=== PATIENT | male | born 1935 | race Caucasian/White ===

== ENCOUNTER 2016-08-18 06:56 | Emergency (ER) | payer MEDICARE, BC ==
[2016-08-18 07:11] VITALS: TEMP 97.6
[2016-08-18 07:40] LABS: BASOPHILS % (AUTO) 1 % (0-3); EOSINOPHILS % (AUTO) 6 % (0-9); HEMATOCRIT 42 % (39-53); MONOCYTES % (AUTO) 8.9 % (0-12); NEUTROPHILS % (AUTO) 56.9 % (37-80)
[2016-08-18] MEDS ORDERED: SODIUM CHLORIDE 0.9% FLUSH 10 ML SOL IV PRN (07:56)
[2016-08-18 07:57] LABS: ALBUMIN 3.5 gm/dl (3.4-5.0); CALCIUM 8.8 mg/dl (8.5-10.1)
[2016-08-18] MEDS ORDERED: SODIUM CHLORIDE 0.9% 1000ML 1,000 ML IV SCH (08:00)
[2016-08-18 08:01] LABS: APPEARANCE,URINE Clear; BILIRUBIN,URINE NEGATIVE (NEGATIVE); COLOR,URINE Yellow; GLUCOSE, URINE (UA) NEGATIVE (NEGATIVE); KETONES,URINE NEGATIVE (NEGATIVE); LEUKOCYTE ESTERASE ,URINE NEGATIVE (NEGATIVE); NITRATE,URINE NEGATIVE (NEGATIVE); OCCULT BLOOD,URINE NEGATIVE (NEG-TRACE); PH,URINE 5.5; UROBILINOGEN,URINE 0.2 (0.2-1.0 EU)
[2016-08-18 08:12] LABS: RBC,URINE NEG (0-3AV/HPF); WBC,URINE 0-1 (0-5AV/HPF)
[2016-08-18 09:02] VITALS: PULSE 64
[2016-08-18 09:22] VITALS: BP 133/69; RESP 12; O2SAT 94
== END 2016-08-18 09:45 | disposition home or self-care (01) | DRG 948 ==
LOC: ED 06:56
DX: R53.1 Weakness (principal)
CPT/HCPCS: 36415; 80053; 81001; 85025; 96365; 99283; 99285

== ENCOUNTER 2016-10-18 06:03 | Emergency (ER) | payer MEDICARE, BC ==
[2016-10-18 06:13] VITALS: TEMP 98.4
[2016-10-18] MEDS ORDERED: NITROGLYCERIN 0.4 MG TAB SL PRN (06:23)
[2016-10-18] MEDS ORDERED: SODIUM CHLORIDE 0.9% FLUSH 10 ML SOL IV PRN (06:23)
[2016-10-18 06:41] LABS: BASOPHILS % (AUTO) 1 % (0-3); EOSINOPHILS % (AUTO) 3 % (0-9); HEMATOCRIT 41 % (39-53); MEAN CORPUSCULAR HGB CONC 36.6 gm/dl (32.0-36.0); MEAN CORPUSCULAR VOLUME 87 fL (80-100); MONOCYTES % (AUTO) 7.1 % (0-12); NEUTROPHILS % (AUTO) 79.6 % (37-80)
[2016-10-18 06:55] LABS: CALCIUM 8.7 mg/dl (8.5-10.1)
[2016-10-18] MEDS ORDERED: ALUMINUM/MAGNESIUM 30 ML SUS PO ONE (07:12)
[2016-10-18] MEDS ORDERED: LIDOCAINE HCL 2% (VISCOUS) 20 ML SOL MT ONE (07:12)
[2016-10-18] MEDS ORDERED: LIDOCAINE HCL 2% (VISCOUS) 20 ML SOL ONE (07:15)
[2016-10-18] MEDS ORDERED: ALUMINUM/MAGNESIUM 30 ML SUS ONE (07:15)
[2016-10-18 07:22] VITALS: BP 124/64; PULSE 84; RESP 22; O2SAT 92
== END 2016-10-18 07:40 | disposition home or self-care (01) | DRG 392 ==
LOC: ED 06:03
DX: K21.0 Gastro-esophageal reflux disease with esophagitis (principal); R07.9 Chest pain, unspecified
CPT/HCPCS: 36415; 71010; 80048; 82550; 84484; 85025; 85610; 85730; 93005; 99284

== ENCOUNTER 2016-11-25 15:19 | Emergency (ER) | payer OTHER, MEDICARE, BC ==
[2016-11-25 15:29] VITALS: RESP 20
[2016-11-25 15:35] VITALS: TEMP 96.8
[2016-11-25 15:46] VITALS: O2SAT 96
[2016-11-25 15:57] VITALS: PULSE 85
[2016-11-25 16:03] VITALS: BP 160/95
== END 2016-11-25 16:19 | disposition home or self-care (01) | DRG 923 ==
LOC: ED 15:19
DX: Z04.1 Encounter for examination and observation following transport accident (principal); R03.0 Elevated blood-pressure reading, without diagnosis of hypertension; V44.5XXA Car driver injured in collision with heavy transport vehicle or bus in traffic accident, initial encounter
CPT/HCPCS: 99282; 99283

== ENCOUNTER 2017-07-11 16:15 | Inpatient (IN) | payer MEDICARE, BC ==
[2017-07-11] MEDS ORDERED: HEPARIN SODIUM 5000 U/ML SOL IV ONE (16:29)
[2017-07-11] MEDS ORDERED: DILTIAZEM 5 MG/ML SOL IV ONE ×2 (16:31→16:57)
[2017-07-11] MEDS ORDERED: SODIUM CHLORIDE 0.9% 100 ML 100 ML IV ONE (16:57)
[2017-07-11] MEDS ORDERED: HEPARIN PREMIX 25,000 U/250 ML SOL IV PRN ×2 (17:00)
[2017-07-11] MEDS: SODIUM CHLORIDE 0.9% FLUSH 10 ML SOL IV SCH (17:10)
[2017-07-11] MEDS: DILTIAZEM 5 MG/ML 125 MG in SODIUM CHLORIDE 0.9% 100 ML 100 ML IV SCH (17:10)
[2017-07-11] MEDS ORDERED: TEMAZEPAM 15MG 15 MG CAP PO PRN (18:04)
[2017-07-11] MEDS ORDERED: ACETAMINOPHEN 325 MG PO PRN (18:04)
[2017-07-11] MEDS: FUROSEMIDE 20 MG TAB PO SCH (18:27)
[2017-07-11] MEDS: SODIUM CHLORIDE 0.9% 1000ML 1,000 ML IV SCH (18:27)
[2017-07-12] MEDS: SODIUM CHLORIDE 0.9% FLUSH 10 ML SOL IV SCH ×4 (02:49→18:22)
[2017-07-12] MEDS ORDERED: DILTIAZEM 5 MG/ML SOL IV ONE (05:56)
[2017-07-12] MEDS ORDERED: SODIUM CHLORIDE 0.9% 100 ML 100 ML IV ONE (05:56)
[2017-07-12] MEDS: DILTIAZEM 5 MG/ML 125 MG in SODIUM CHLORIDE 0.9% 100 ML 100 ML IV SCH (06:06)
[2017-07-12 08:12] LABS: ALBUMIN 3.1 gm/dl (3.4-5.0); CALCIUM 8.6 mg/dl (8.5-10.1); POTASSIUM 3.7 mMol/L (3.5-5.1)
[2017-07-12 08:25] LABS: BASOPHILS % (AUTO) 1 % (0-3); EOSINOPHILS % (AUTO) 4 % (0-9); HEMATOCRIT 41 % (39-53); MEAN CORPUSCULAR HGB CONC 36.5 gm/dl (32.0-36.0); MEAN CORPUSCULAR VOLUME 91 fL (80-100); NEUTROPHILS % (AUTO) 70.4 % (37-80)
[2017-07-12] MEDS: SODIUM CHLORIDE 0.9% 1000ML 1,000 ML IV SCH (09:06)
[2017-07-12] MEDS: FUROSEMIDE 20 MG TAB PO SCH ×2 (09:10→12:28)
[2017-07-12] MEDS ORDERED: DILTIAZEM 30 MG PO SCH (10:00)
[2017-07-12] MEDS: ROPINIROLE 1 MG PO SCH (10:05)
[2017-07-12] MEDS ORDERED: AMIODARONE 50 MG/ML 600 MG in DEXTROSE 250 ML 250 ML IV ONE (11:25)
[2017-07-12] MEDS ORDERED: AMIODARONE 50 MG/ML SOL IV ONE (12:00)
[2017-07-12] MEDS ORDERED: ENOXAPARIN 30 MG SOL SC SCH (12:00)
[2017-07-12] MEDS ORDERED: ENOXAPARIN 100 MG SOL SC SCH (12:00)
[2017-07-12] MEDS ORDERED: AMIODARONE IV ONE ×2 (12:15→17:15)
[2017-07-12] MEDS ORDERED: DEXTROSE IV ONE ×2 (12:15→17:15)
[2017-07-12] MEDS: RIVAROXABAN 10 MG TAB PO SCH (12:33)
[2017-07-12] MEDS ORDERED: AMIODARONE 50 MG/ML SOL ONE ×3 (12:41→20:35)
[2017-07-12] MEDS ORDERED: DEXTROSE 50 ML 50 ML IV ONE ×3 (12:41→20:37)
[2017-07-12] MEDS ORDERED: KETOTIFEN FUMARATE EACHEYE PRN (13:40)
[2017-07-12] MEDS: DEXTROSE IV SCH ×2 (17:30→20:49)
[2017-07-12] MEDS: AMIODARONE IV SCH ×2 (17:30→20:49)
[2017-07-12] MEDS ORDERED: WARFARIN SODIUM 5 MG TAB PO SCH (18:00)
[2017-07-12] MEDS: TEMAZEPAM 15MG 15 MG CAP PO PRN (20:34)
[2017-07-13] MEDS ORDERED: AMIODARONE 50 MG/ML SOL ONE ×2 (00:43→04:59)
[2017-07-13] MEDS ORDERED: DEXTROSE IV ONE ×2 (00:43→04:59)
[2017-07-13] MEDS: DEXTROSE IV SCH ×2 (00:52→05:05)
[2017-07-13] MEDS: AMIODARONE IV SCH ×2 (00:52→05:05)
[2017-07-13] MEDS: SODIUM CHLORIDE 0.9% FLUSH 10 ML SOL IV SCH ×4 (01:43→20:09)
[2017-07-13 07:35] LABS: CALCIUM 8.6 mg/dl (8.5-10.1); POTASSIUM 3.6 mMol/L (3.5-5.1)
[2017-07-13] MEDS ORDERED: METOPROLOL SUCCINATE 50 MG ER TAB PO PRN (09:00)
[2017-07-13] MEDS: AMIODARONE 200 MG TAB PO SCH ×2 (09:26→20:09)
[2017-07-13] MEDS: FUROSEMIDE 20 MG TAB PO SCH ×2 (09:26→13:54)
[2017-07-13] MEDS: ROPINIROLE 1 MG PO SCH (09:26)
[2017-07-13] MEDS: RIVAROXABAN 10 MG TAB PO SCH (09:27)
[2017-07-13 14:50] VITALS: RESP 20
[2017-07-14] MEDS: SODIUM CHLORIDE 0.9% FLUSH 10 ML SOL IV SCH ×2 (00:48→08:20)
[2017-07-14] MEDS: TEMAZEPAM 15MG 15 MG CAP PO PRN (00:50)
[2017-07-14 07:28] LABS: CALCIUM 8.1 mg/dl (8.5-10.1); POTASSIUM 3.4 mMol/L (3.5-5.1)
[2017-07-14] MEDS: ROPINIROLE 1 MG PO SCH (08:20)
[2017-07-14] MEDS: AMIODARONE 200 MG TAB PO SCH (08:20)
[2017-07-14] MEDS: FUROSEMIDE 20 MG TAB PO SCH (08:21)
[2017-07-14] MEDS: RIVAROXABAN 10 MG TAB PO SCH (09:22)
[2017-07-14 10:53] VITALS: BP 106/64; PULSE 62; TEMP 97.3; O2SAT 95
== END 2017-07-14 10:00 | disposition swing bed (61) | DRG 309 ==
LOC: ACUTE CARE 16:15
PROVIDERS: ADMIT Emergency Medicine; ATTEND Emergency Medicine
DX: I48.91 Unspecified atrial fibrillation (principal); E87.1 Hypo-osmolality and hyponatremia; I34.0 Nonrheumatic mitral (valve) insufficiency; I10 Essential (primary) hypertension; R94.5 Abnormal results of liver function studies; R63.4 Abnormal weight loss; G25.81 Restless legs syndrome; G47.00 Insomnia, unspecified; E66.9 Obesity, unspecified; Z72.89 Other problems related to lifestyle
CPT/HCPCS: 36415; 71010; 80048; 80053; 83880; 84443; 84484; 85025; 85610; 85730; 93012; 93306; 94669; 94762; 99070; J0282; J1644

== ENCOUNTER 2017-07-14 09:35 | Inpatient (IN) | payer MEDICARE, BC ==
[2017-07-14] MEDS ORDERED: METOPROLOL SUCCINATE 50 MG ER TAB PO PRN (10:10)
[2017-07-14] MEDS ORDERED: ACETAMINOPHEN 325 MG PO PRN (10:10)
[2017-07-14] MEDS ORDERED: KETOTIFEN FUMARATE EACHEYE PRN (10:10)
[2017-07-14] MEDS: FUROSEMIDE 20 MG TAB PO SCH (12:01)
[2017-07-14] MEDS ORDERED: PATIENT EDUCATION 1 MISC PRN (14:09)
[2017-07-14] MEDS: POTASSIUM CHLORIDE 10 MEQ CAPSULE PO SCH (20:17)
[2017-07-14] MEDS: AMIODARONE 200 MG TAB PO SCH (20:17)
[2017-07-15] MEDS: TEMAZEPAM 15MG 15 MG CAP PO PRN ×2 (01:41→23:35)
[2017-07-15] MEDS: AMIODARONE 200 MG TAB PO SCH ×2 (09:30→20:53)
[2017-07-15] MEDS: FUROSEMIDE 20 MG TAB PO SCH ×2 (09:30→12:06)
[2017-07-15] MEDS: POTASSIUM CHLORIDE 10 MEQ CAPSULE PO SCH ×2 (09:30→20:54)
[2017-07-15] MEDS: ROPINIROLE HYDROCHLORIDE 2 MG PO SCH (09:31)
[2017-07-15] MEDS: RIVAROXABAN 10 MG TAB PO SCH (09:32)
[2017-07-15] MEDS: CLOTRIMAZOLE 1% CREAM TOP SCH (20:56)
[2017-07-16] MEDS: ROPINIROLE HYDROCHLORIDE 2 MG PO SCH (08:22)
[2017-07-16] MEDS: POTASSIUM CHLORIDE 10 MEQ CAPSULE PO SCH ×2 (08:23→20:18)
[2017-07-16] MEDS: CLOTRIMAZOLE 1% CREAM TOP SCH ×2 (08:23→20:18)
[2017-07-16] MEDS: AMIODARONE 200 MG TAB PO SCH ×2 (08:24→20:17)
[2017-07-16] MEDS: RIVAROXABAN 10 MG TAB PO SCH (08:24)
[2017-07-16] MEDS: FUROSEMIDE 20 MG TAB PO SCH ×2 (08:25→12:05)
[2017-07-16] MEDS: TEMAZEPAM 15MG 15 MG CAP PO PRN (22:35)
[2017-07-17] MEDS: AMIODARONE 200 MG TAB PO SCH ×2 (08:50→22:55)
[2017-07-17] MEDS: POTASSIUM CHLORIDE 10 MEQ CAPSULE PO SCH ×2 (08:50→22:56)
[2017-07-17] MEDS: RIVAROXABAN 10 MG TAB PO SCH (08:51)
[2017-07-17] MEDS: FUROSEMIDE 20 MG TAB PO SCH ×2 (08:51→12:55)
[2017-07-17] MEDS: CLOTRIMAZOLE 1% CREAM TOP SCH ×2 (08:51→22:56)
[2017-07-17] MEDS: ROPINIROLE HYDROCHLORIDE 2 MG PO SCH (08:52)
[2017-07-17] MEDS: TEMAZEPAM 15MG 15 MG CAP PO PRN (22:57)
[2017-07-18] MEDS: AMIODARONE 200 MG TAB PO SCH ×2 (08:37→20:46)
[2017-07-18] MEDS: ROPINIROLE HYDROCHLORIDE 2 MG PO SCH (08:37)
[2017-07-18] MEDS: FUROSEMIDE 20 MG TAB PO SCH ×2 (08:37→11:53)
[2017-07-18] MEDS: POTASSIUM CHLORIDE 10 MEQ CAPSULE PO SCH ×2 (08:37→20:46)
[2017-07-18] MEDS ORDERED: RIVAROXABAN 10 MG TAB PO ONE (08:39)
[2017-07-18] MEDS: RIVAROXABAN 10 MG TAB PO SCH (08:39)
[2017-07-18] MEDS: CLOTRIMAZOLE 1% CREAM TOP SCH ×2 (11:54→20:46)
[2017-07-18] MEDS: TEMAZEPAM 15MG 15 MG CAP PO PRN (23:20)
[2017-07-19] MEDS: ROPINIROLE HYDROCHLORIDE 2 MG PO SCH (08:26)
[2017-07-19] MEDS: AMIODARONE 200 MG TAB PO SCH ×2 (08:26→21:23)
[2017-07-19] MEDS: FUROSEMIDE 20 MG TAB PO SCH ×2 (08:26→12:21)
[2017-07-19] MEDS: POTASSIUM CHLORIDE 10 MEQ CAPSULE PO SCH ×2 (08:26→21:23)
[2017-07-19] MEDS: RIVAROXABAN 10 MG TAB PO SCH (08:26)
[2017-07-19] MEDS: CLOTRIMAZOLE 1% CREAM TOP SCH ×2 (08:27→21:24)
[2017-07-19] MEDS: TRAZODONE HYDROCHLORIDE 50 MG TAB PO PRN (22:04)
[2017-07-19] MEDS: TEMAZEPAM 15MG 15 MG CAP PO PRN (23:26)
[2017-07-20] MEDS: FUROSEMIDE 20 MG TAB PO SCH ×2 (09:08→11:50)
[2017-07-20] MEDS: ROPINIROLE HYDROCHLORIDE 2 MG PO SCH (09:09)
[2017-07-20] MEDS: POTASSIUM CHLORIDE 10 MEQ CAPSULE PO SCH ×2 (09:09→20:20)
[2017-07-20] MEDS: RIVAROXABAN 10 MG TAB PO SCH (09:10)
[2017-07-20] MEDS: CLOTRIMAZOLE 1% CREAM TOP SCH ×2 (09:10→20:20)
[2017-07-20 09:23] LABS: CALCIUM 8.7 mg/dl (8.5-10.1)
[2017-07-20] MEDS: AMIODARONE 200 MG TAB PO SCH ×2 (09:32→20:21)
[2017-07-20] MEDS: TRAZODONE HYDROCHLORIDE 50 MG TAB PO PRN (21:56)
[2017-07-20] MEDS: TEMAZEPAM 15MG 15 MG CAP PO PRN (22:59)
[2017-07-21] MEDS: POTASSIUM CHLORIDE 10 MEQ CAPSULE PO SCH ×2 (09:02→21:19)
[2017-07-21] MEDS: ROPINIROLE HYDROCHLORIDE 2 MG PO SCH (09:02)
[2017-07-21] MEDS: FUROSEMIDE 20 MG TAB PO SCH ×2 (09:02→11:21)
[2017-07-21] MEDS: CLOTRIMAZOLE 1% CREAM TOP SCH ×2 (09:03→21:19)
[2017-07-21] MEDS: AMIODARONE 200 MG TAB PO SCH ×2 (09:03→21:19)
[2017-07-21] MEDS: RIVAROXABAN 10 MG TAB PO SCH (09:03)
[2017-07-21] MEDS: TRAZODONE HYDROCHLORIDE 50 MG TAB PO PRN (21:20)
[2017-07-21] MEDS: TEMAZEPAM 15MG 15 MG CAP PO PRN (22:33)
[2017-07-22 05:04] VITALS: RESP 16
[2017-07-22 07:41] VITALS: BP 118/62; PULSE 53; TEMP 97.3; O2SAT 98
[2017-07-22] MEDS: ROPINIROLE HYDROCHLORIDE 2 MG PO SCH (09:00)
[2017-07-22] MEDS: RIVAROXABAN 10 MG TAB PO SCH (09:01)
[2017-07-22] MEDS: POTASSIUM CHLORIDE 10 MEQ CAPSULE PO SCH (09:01)
[2017-07-22] MEDS: CLOTRIMAZOLE 1% CREAM TOP SCH (09:02)
[2017-07-22] MEDS: FUROSEMIDE 20 MG TAB PO SCH (09:02)
[2017-07-22] MEDS: AMIODARONE 200 MG TAB PO SCH (09:02)
[2017-07-22] MEDS ORDERED: PNEUMOC 13-VAL CONJ-DIP CRM/PF 0.5 ML SYRINGE IM ONE (09:46)
[2017-07-22] MEDS ORDERED: INFLUENZA HIGH DOSE VACCINE 0.5 ML SUS IM ONE (09:46)
== END 2017-07-22 10:55 | disposition home or self-care (01) | DRG 310 ==
LOC: ACUTE CARE 10:05
PROVIDERS: ADMIT Family Medicine; ATTEND Family Medicine
DX: I48.91 Unspecified atrial fibrillation (principal); I50.9 Heart failure, unspecified
CPT/HCPCS: 36415; 80048; 90662; 93005; 94762; G0008

== ENCOUNTER 2019-03-26 17:29 | Inpatient (IN) | payer MEDICARE, BC ==
[2019-03-26] MEDS ORDERED: SODIUM CHLORIDE 0.9% 1000ML 1,000 ML IV ONE (17:45)
[2019-03-26] MEDS: SODIUM CHLORIDE 0.9% FLUSH 10 ML SOL IV SCH (18:09)
[2019-03-26] MEDS ORDERED: POTASSIUM CHLORIDE 2 MEQ/ML SOL IV ONE (20:44)
[2019-03-26] MEDS: DEXTROSE/SALINE 0.9% 1,000 ML with POTASSIUM CHLORIDE 2 MEQ/ML 20 MEQ IV SCH (20:53)
[2019-03-26] MEDS: NICOTINE 7 MG PATCH TD SCH (22:25)
[2019-03-26] MEDS: CLOTRIMAZOLE 1% CREAM TOP SCH (23:46)
[2019-03-27] MEDS: CLOTRIMAZOLE 1% CREAM TOP SCH ×3 (01:30→20:17)
[2019-03-27] MEDS: SODIUM CHLORIDE 0.9% FLUSH 10 ML SOL IV SCH ×3 (01:58→18:43)
[2019-03-27] MEDS ORDERED: POTASSIUM CHLORIDE 2 MEQ/ML SOL IV ONE (03:28)
[2019-03-27] MEDS: DEXTROSE/SALINE 0.9% 1,000 ML with POTASSIUM CHLORIDE 2 MEQ/ML 20 MEQ IV SCH ×2 (03:35→09:13)
[2019-03-27 07:40] LABS: CALCIUM 8.1 mg/dl (8.5-10.1); CARBON DIOXIDE 25.5 mEq/L (21-32); CREATININE 1.13 mg/dl (0.80-1.30); THYROID STIMULATING HORMONE 1.371 uIU/ml (0.358-3.740)
[2019-03-27 07:49] LABS: BASOPHILS % (AUTO) 1 % (0-3); EOSINOPHILS % (AUTO) 3 % (0-9); HEMATOCRIT 41 % (39-53); HEMOGLOBIN 13.4 gm/dl (13.5-17.7); LYMPHOCYTES % (AUTO) 20.6 % (10-50); MEAN CORPUSCULAR HEMOGLOBIN 31.1 pg (27.0-32.0); MEAN CORPUSCULAR HGB CONC 32.6 gm/dl (32.0-36.0); MEAN CORPUSCULAR VOLUME 95 fL (80-100); MONOCYTES % (AUTO) 9.6 % (0-12); NEUTROPHILS % (AUTO) 65.8 % (37-80)
[2019-03-27] MEDS ORDERED: METOPROLOL SUCCINATE 50 MG ER TAB PO SCH (09:00)
[2019-03-27] MEDS ORDERED: RIVAROXABAN 10 MG TAB PO SCH (09:00)
[2019-03-27] MEDS: PANTOPRAZOLE SODIUM 40 MG ECT PO SCH (09:23)
[2019-03-27] MEDS: DEXTROSE/SALINE 0.45/KCL 20MEQ 1,000 ML/1,000 ML SOL IV SCH ×3 (10:30→18:44)
[2019-03-27] MEDS: NICOTINE 7 MG PATCH TD SCH (22:36)
[2019-03-28] MEDS: SODIUM CHLORIDE 0.9% FLUSH 10 ML SOL IV SCH ×3 (00:58→10:43)
[2019-03-28] MEDS: DEXTROSE/SALINE 0.45/KCL 20MEQ 1,000 ML/1,000 ML SOL IV SCH (03:47)
[2019-03-28 07:24] LABS: ALBUMIN 2.6 gm/dl (3.4-5.0); CALCIUM 8.2 mg/dl (8.5-10.1); CARBON DIOXIDE 25.2 mEq/L (21-32); CREATININE 1.08 mg/dl (0.80-1.30); THYROID STIMULATING HORMONE 1.238 uIU/ml (0.358-3.740); TOTAL PROTEIN 5.8 gm/dl (6.4-8.2)
[2019-03-28] MEDS: PANTOPRAZOLE SODIUM 40 MG ECT PO SCH (08:48)
[2019-03-28 08:54] VITALS: BP 122/85; PULSE 120; RESP 24; O2SAT 96
[2019-03-28 10:43] VITALS: TEMP 97
[2019-03-28] MEDS: CLOTRIMAZOLE 1% CREAM TOP SCH (10:44)
== END 2019-03-28 11:35 | disposition home or self-care (01) | DRG 946 ==
LOC: ACUTE CARE 17:33
PROVIDERS: ADMIT Family Medicine; ATTEND Family Medicine
PROC: F01K0ZZ Muscle Performance Assessment of Musculoskeletal System - Upper Back / Upper Extremity (ICD-10-PCS; principal; 2019-03-27)
PROC: F01K5ZZ Range of Motion and Joint Integrity Assessment of Musculoskeletal System - Upper Back / Upper Extremity (ICD-10-PCS; 2019-03-27)
PROC: F02Z3ZZ Grooming/Personal Hygiene Assessment (ICD-10-PCS; 2019-03-27)
PROC: F02Z0ZZ Bathing/Showering Assessment (ICD-10-PCS; 2019-03-27)
DX: R53.1 Weakness (principal); R63.4 Abnormal weight loss; J43.2 Centrilobular emphysema; I48.2 Chronic atrial fibrillation; J44.9 Chronic obstructive pulmonary disease, unspecified; I50.9 Heart failure, unspecified
CPT/HCPCS: 36415; 71260; 74177; 80048; 80053; 84443; 85025; 93005; 93306; 94150; J3480; Q9967; A9270-GY

== ENCOUNTER 2019-04-01 12:53 | Inpatient (IN) | payer MEDICARE, BC ==
[2019-04-01 14:12] LABS: BASOPHILS % (AUTO) 1 % (0-3); EOSINOPHILS % (AUTO) 1 % (0-9); HEMATOCRIT 43 % (39-53); HEMOGLOBIN 13.6 gm/dl (13.5-17.7); LYMPHOCYTES % (AUTO) 11.3 % (10-50); MEAN CORPUSCULAR HEMOGLOBIN 30.3 pg (27.0-32.0); MEAN CORPUSCULAR HGB CONC 31.9 gm/dl (32.0-36.0); MEAN CORPUSCULAR VOLUME 95 fL (80-100); MONOCYTES % (AUTO) 7.9 % (0-12); NEUTROPHILS % (AUTO) 78.7 % (37-80)
[2019-04-01 14:25] LABS: CALCIUM 8.4 mg/dl (8.5-10.1); CARBON DIOXIDE 21.9 mEq/L (21-32); CREATININE 1.08 mg/dl (0.80-1.30); MAGNESIUM 2.1 mg/dl (1.8-2.4)
[2019-04-01] MEDS ORDERED: FUROSEMIDE 20mg SOL IV ONE (15:03)
[2019-04-01] MEDS ORDERED: FUROSEMIDE 20mg SOL ONE (15:04)
[2019-04-01] MEDS ORDERED: ALBUTEROL/IPRATROPIUM 1 VIAL SOL INH ONE (15:47)
[2019-04-01] MEDS ORDERED: ALBUTEROL/IPRATROPIUM 1 VIAL SOL ONE (15:53)
[2019-04-01] MEDS ORDERED: ACETAMINOPHEN 325 MG PO PRN (20:30)
[2019-04-02] MEDS: SODIUM CHLORIDE 0.9% FLUSH 10 ML SOL IV SCH ×5 (07:24→22:43)
[2019-04-02] MEDS ORDERED: FUROSEMIDE 20 MG TAB PO SCH (09:00)
[2019-04-02] MEDS ORDERED: RIVAROXABAN 20 MG TAB PO SCH (09:00)
[2019-04-02] MEDS: SPIRONOLACTONE 25 MG TAB PO SCH (09:08)
[2019-04-02] MEDS: DIGOXIN 0.125 MG TAB PO SCH ×3 (09:09→20:16)
[2019-04-02] MEDS: PANTOPRAZOLE SODIUM 40 MG ECT PO SCH (09:09)
[2019-04-03] MEDS: DIGOXIN 0.125 MG TAB PO SCH (02:03)
[2019-04-03] MEDS: SODIUM CHLORIDE 0.9% FLUSH 10 ML SOL IV SCH ×2 (06:32→15:52)
[2019-04-03 07:25] LABS: CALCIUM 8.1 mg/dl (8.5-10.1); CARBON DIOXIDE 27.3 mEq/L (21-32); CREATININE 1.14 mg/dl (0.80-1.30)
[2019-04-03] MEDS ORDERED: BISACODYL 5 MG TAB ECT PO SCH (09:00)
[2019-04-03] MEDS: CARVEDILOL 3.125 MG TAB PO SCH ×2 (09:31→20:01)
[2019-04-03] MEDS: PANTOPRAZOLE SODIUM 40 MG ECT PO SCH (09:31)
[2019-04-03] MEDS: SPIRONOLACTONE 25 MG TAB PO SCH (09:32)
[2019-04-03] MEDS: FUROSEMIDE 20 MG TAB PO SCH ×2 (09:32→11:55)
[2019-04-03] MEDS: POLYETHYLENE GLYCOL 17 GM/1 TBS PDS PO SCH (18:05)
[2019-04-04] MEDS: SODIUM CHLORIDE 0.9% FLUSH 10 ML SOL IV SCH ×3 (00:09→15:36)
[2019-04-04] MEDS: POLYETHYLENE GLYCOL 17 GM/1 TBS PDS PO SCH (04:15)
[2019-04-04 08:00] LABS: CALCIUM 8.9 mg/dl (8.5-10.1); CREATININE 1.46 mg/dl (0.80-1.30)
[2019-04-04] MEDS: FUROSEMIDE 20 MG TAB PO SCH ×2 (13:31→13:37)
[2019-04-04] MEDS: CARVEDILOL 3.125 MG TAB PO SCH (13:31)
[2019-04-04] MEDS: DIGOXIN 0.125 MG TAB PO SCH (13:31)
[2019-04-04] MEDS: PANTOPRAZOLE SODIUM 40 MG ECT PO SCH (13:37)
[2019-04-04] MEDS: SPIRONOLACTONE 25 MG TAB PO SCH (13:37)
[2019-04-04 18:11] VITALS: O2SAT 96
[2019-04-05 07:36] LABS: CALCIUM 8.3 mg/dl (8.5-10.1); CARBON DIOXIDE 31.8 mEq/L (21-32); CREATININE 1.25 mg/dl (0.80-1.30)
[2019-04-05 08:12] VITALS: BP 103/64; PULSE 65; RESP 18; TEMP 98.3
[2019-04-05] MEDS: DIGOXIN 0.125 MG TAB PO SCH ×2 (08:42→10:43)
[2019-04-05] MEDS: PANTOPRAZOLE SODIUM 40 MG ECT PO SCH (08:42)
[2019-04-05] MEDS ORDERED: FUROSEMIDE 20 MG TAB PO SCH (09:00)
[2019-04-05] MEDS: POTASSIUM CHLORIDE 10 MEQ TER PO SCH ×2 (10:43→13:09)
== END 2019-04-05 13:45 | disposition swing bed (61) | DRG 310 ==
LOC: ED 12:53 → UNDOADMOB 19:05 → ACUTE CARE 19:05 → OBSVTOIN 04-02 08:08
PROVIDERS: ADMIT Family Medicine; ATTEND Family Medicine
PROC: F01ZBZZ Bed Mobility Assessment (ICD-10-PCS; principal; 2019-04-03)
PROC: F01ZDZZ Gait and/or Balance Assessment (ICD-10-PCS; 2019-04-03)
PROC: F02Z0ZZ Bathing/Showering Assessment (ICD-10-PCS; 2019-04-03)
PROC: F02Z3ZZ Grooming/Personal Hygiene Assessment (ICD-10-PCS; 2019-04-03)
DX: R60.9 Edema, unspecified (principal); R06.02 Shortness of breath; I48.2 Chronic atrial fibrillation; R60.1 Generalized edema; J43.1 Panlobular emphysema; R63.4 Abnormal weight loss; R53.1 Weakness
CPT/HCPCS: 36415; 71045; 80048; 80162; 83735; 83880; 84100; 85025; 93005; 93012; 96374; 99284; 99285; J1940; A9270-GY

== ENCOUNTER 2019-04-05 13:25 | Inpatient (IN) | payer MEDICARE, BC ==
[2019-04-05] MEDS ORDERED: ACETAMINOPHEN 325 MG PO PRN (14:08)
[2019-04-05] MEDS ORDERED: POTASSIUM CHLORIDE 10 MEQ TER PO SCH (16:25)
[2019-04-05] MEDS: CLOTRIMAZOLE 1% CREAM TOP SCH (20:10)
[2019-04-06] MEDS: DIGOXIN 0.125 MG TAB PO SCH (08:52)
[2019-04-06] MEDS: PANTOPRAZOLE SODIUM 40 MG ECT PO SCH (08:52)
[2019-04-06] MEDS: FUROSEMIDE 20 MG TAB PO SCH (08:52)
[2019-04-06] MEDS: CLOTRIMAZOLE 1% CREAM TOP SCH ×2 (08:53→20:18)
[2019-04-07] MEDS: CLOTRIMAZOLE 1% CREAM TOP SCH ×2 (13:59→20:04)
[2019-04-07] MEDS: DIGOXIN 0.125 MG TAB PO SCH (13:59)
[2019-04-07] MEDS: FUROSEMIDE 20 MG TAB PO SCH (13:59)
[2019-04-07] MEDS: PANTOPRAZOLE SODIUM 40 MG ECT PO SCH (13:59)
[2019-04-07] MEDS: TEMAZEPAM 15MG 15 MG CAP PO PRN (21:20)
[2019-04-08] MEDS: FUROSEMIDE 20 MG TAB PO SCH (09:31)
[2019-04-08] MEDS: DIGOXIN 0.125 MG TAB PO SCH (09:31)
[2019-04-08] MEDS: PANTOPRAZOLE SODIUM 40 MG ECT PO SCH (09:31)
[2019-04-08] MEDS: CLOTRIMAZOLE 1% CREAM TOP SCH ×2 (09:33→21:11)
[2019-04-08] MEDS: TEMAZEPAM 15MG 15 MG CAP PO PRN (21:11)
[2019-04-09 08:39] LABS: CALCIUM 8.1 mg/dl (8.5-10.1); CARBON DIOXIDE 29.6 mEq/L (21-32); CREATININE 1.12 mg/dl (0.80-1.30); DIGOXIN 1.2 ng/ml (0.9-2.0)
[2019-04-09] MEDS: FUROSEMIDE 20 MG TAB PO SCH (08:55)
[2019-04-09] MEDS: CLOTRIMAZOLE 1% CREAM TOP SCH ×2 (08:55→20:00)
[2019-04-09] MEDS: PANTOPRAZOLE SODIUM 40 MG ECT PO SCH (08:55)
[2019-04-09 19:41] VITALS: RESP 20
[2019-04-10] MEDS: PANTOPRAZOLE SODIUM 40 MG ECT PO SCH (09:38)
[2019-04-10] MEDS: FUROSEMIDE 20 MG TAB PO SCH (09:38)
[2019-04-10] MEDS: CLOTRIMAZOLE 1% CREAM TOP SCH (09:39)
[2019-04-10 09:46] VITALS: BP 96/56; PULSE 66; TEMP 97.6; O2SAT 92
== END 2019-04-10 13:50 | DRG 310 ==
LOC: ACUTE CARE 13:50
PROVIDERS: ADMIT Family Medicine; ATTEND Family Medicine
PROC: F01L0FZ Muscle Performance Assessment of Musculoskeletal System - Lower Back / Lower Extremity using Assistive, Adaptive, Supportive or Protective Equipment (ICD-10-PCS; principal; 2019-04-05)
PROC: F01L5YZ Range of Motion and Joint Integrity Assessment of Musculoskeletal System - Lower Back / Lower Extremity using Other Equipment (ICD-10-PCS; 2019-04-05)
DX: I48.2 Chronic atrial fibrillation (principal); R60.1 Generalized edema; R06.02 Shortness of breath; J43.1 Panlobular emphysema; K21.9 Gastro-esophageal reflux disease without esophagitis; R63.4 Abnormal weight loss
CPT/HCPCS: 36415; 80048; 80162; 84132; A9270-GY